=== PATIENT | male | born 2000 | race Caucasian/White ===

== ENCOUNTER 2019-03-15 13:43 | Emergency (ER) | payer OTHER ==
[2019-03-15 14:02] VITALS: BP 133/81
[2019-03-15] MEDS ORDERED: Lidocaine 2% PF * 5 ML VIAL INJ ONE (14:09)
--- NOTE | 2019-03-17 07:58 | UC ---
Laceration HPI - HPI Summary HPI Summary: laceration left index finger x 2 hrs ago cut his left index finger with a sharp knife severity is 4 out of 10 , worse with moving his finger better with pressure, moving his finger well, - History Of Current Complaint Chief Complaint: UCLaceration Stated Complaint: LACERATION ON LT INDEX FINGER Time Seen by Provider: 03/15/19 14:06 Hx Obtained From: Patient Laceration Location: Finger - left index Mechanism Of Injury: Sharp Trauma Onset/Duration: Sudden Onset, Lasting Hours - 2 Severity: Moderate Pain Intensity: 4 Pain Scale Used: 0-10 Numeric Aggravating Factors: Movement - Allergies/Home Medications Allergies/Adverse Reactions: Allergies Allergy/AdvReac Type Severity Reaction Status Date / Time No Known Allergies Allergy Verified 03/15/19 13:58 Home Medications: Home Medications NK [No Home Medications Reported] 03/15/19 [History Confirmed 03/15/19] PMH/Surg Hx/FS Hx/Imm Hx Previously Healthy: Yes - Surgical History Surgical History: Yes Surgery Procedure, Year, and Place: appy. left thumb ligament repair - Family History Known Family History: Negative: Diabetes - Social History Alcohol Use: Occasionally Substance Use Type: None Smoking Status (MU): Never Smoked Tobacco Review of Systems All Other Systems Reviewed And Are Negative: Yes Constitutional: Positive: Negative Eyes: Positive: Negative ENT: Positive: Negative Is Patient Immunocompromised?: No Physical Exam Triage Information Reviewed: Yes Appearance: Well-Appearing, No Pain Distress, Well-Nourished Vital Signs: Initial Vital Signs Temp 99 F 03/15/19 13:58 Pulse 76 03/15/19 13:58 Resp 13 03/15/19 13:58 BP 133/81 03/15/19 13:58 Pulse Ox 97 03/15/19 13:58 Vital Signs Reviewed: Yes Eye Exam: Normal Eyes: Positive: Conjunctiva Clear ENT: Positive: Normal ENT inspection Neck: Positive: Supple Respiratory: Positive: Chest non-tender, Lungs clear, Normal breath sounds Cardiovascular: Positive: RRR, No Murmur, Pulses Normal Skin: Positive: Other - 2 cm laceration left index finger, laceration is 2 mm deep , bleeding, good ROM of the left index figer on flexion and extension , normal stregth Laceration Repair - Laceration Repair 2 Description: Linear Laceration Size After Repair: Length (cm) - 2, Width (mm) - 1, Depth (mm) - 2 Modified For Repair: No Type Injection: Local Anesthesia Used: 2.0% Lido - 4 cc Cleansing Completed Via Routine Prep: Yes Irrigation With Pressure Irrigation Device: Yes Closure Material: Sutures Closure Method: Single Layer Suture Of: Skin Suture Type: Nylon - 5.0 Laceration Course/Dx - Diagnosis Provider Diagnosis: Laceration of left index finger Discharge ED - Sign-Out/Discharge Documenting (check all that apply): Patient Departure All imaging exams completed and their final reports reviewed: No Studies - Discharge Plan Condition: Stable Disposition: HOME Patient Education Materials: Finger Laceration (ED) Referrals: No Primary Care Phys,NOPCP [Primary Care Provider] - Additional Instructions: follow up in 10 days for suture removal - Billing Disposition and Condition Condition: STABLE Disposition: Home
== END 2019-03-15 14:50 | disposition home or self-care (01) ==
LOC: UCCORT 13:43
DX: S61.211A Laceration without foreign body of left index finger without damage to nail, initial encounter (principal); W26.0XXA Contact with knife, initial encounter; Y93.9 Activity, unspecified
CPT/HCPCS: 12001; 12002; 99202; G0463

== ENCOUNTER 2019-03-25 11:36 | Emergency (ER) | payer OTHER ==
[2019-03-25 12:23] VITALS: BP 133/86
--- NOTE | 2019-03-25 12:35 | UC ---
HPI Wound/Suture Re-check - HPI Summary HPI Summary: Pt presents with request to have sutures removed form left index finger that were placed here on 03/15/19. - History Of Current Complaint Chief Complaint: UCWounds Stated Complaint: STUTURE REMOVAL Time Seen by Provider: 03/25/19 12:25 Hx Obtained From: Patient Onset/Duration: Sudden Onset, Resolved Severity: Moderate Pain Intensity: 0 - Allergies/Home Medications Allergies/Adverse Reactions: Allergies Allergy/AdvReac Type Severity Reaction Status Date / Time No Known Allergies Allergy Verified 03/25/19 12:23 PMH/Surg Hx/FS Hx/Imm Hx Previously Healthy: Yes - Surgical History Surgical History: Yes Surgery Procedure, Year, and Place: appy. left thumb ligament repair - Family History Known Family History: Negative: Diabetes - Social History Occupation: Student - [employer] [place] Lives: Dormitory/Roommates Alcohol Use: Occasionally Substance Use Type: None Smoking Status (MU): Never Smoked Tobacco Have You Smoked in the Last Year: No - Immunization History Vaccination Up to Date: Yes Review of Systems All Other Systems Reviewed And Are Negative: Yes Constitutional: Positive: Negative Skin: Positive: Other - suture removal Eyes: Positive: Negative ENT: Positive: Negative Respiratory: Positive: Negative Cardiovascular: Positive: Negative Gastrointestinal: Positive: Negative Genitourinary: Positive: Negative Motor: Positive: Negative Neurovascular: Positive: Negative Musculoskeletal: Positive: Negative Neurological: Positive: Negative Psychological: Positive: Negative Is Patient Immunocompromised?: No Physical Exam Triage Information Reviewed: Yes Appearance: Well-Appearing Vital Signs: Initial Vital Signs Temp 98.4 F 03/25/19 12:19 Pulse 69 03/25/19 12:19 Resp 18 03/25/19 12:19 BP 133/86 03/25/19 12:19 Pulse Ox 99 03/25/19 12:19 Vital Signs Reviewed: Yes Eye Exam: Normal ENT: Positive: Hearing grossly normal Dental Exam: Normal Neck exam: Normal Respiratory: Positive: No respiratory distress Musculoskeletal Exam: Normal Musculoskeletal: Positive: Strength Intact Neurological Exam: Normal Psychological Exam: Normal Skin Exam: Other - sutures intact, no redness, no drainage, no swelling. Course/Dx - Course Course Of Treatment: 5 sutures removed without complication or dehiscent of wound - Differential Dx - Laceration/Wound Differential Diagnoses: Healing Wound, Suture Removal - Diagnosis Provider Diagnosis: Healing wound, Visit for suture removal Discharge ED - Sign-Out/Discharge Documenting (check all that apply): Patient Departure All imaging exams completed and their final reports reviewed: No Studies - Discharge Plan Condition: Stable Disposition: HOME Patient Education Materials: Stitches Removal (ED) Referrals: [facility] [Outside] No Primary Care Phys,NOPCP [Primary Care Provider] - Additional Instructions: Please keep your wound clean and dry for another 5-7 days. Clean around the wound and keep it clean. Please keep the steri strips intact for the next week for healing purposes. If they fall off please place new ones on. - Billing Disposition and Condition Condition: STABLE Disposition: Home - Attestation Statements Provider Attestation: I was available for consult. This patient was seen by the DILIP. The patient was not presented to, seen by, or examined by me. Delta Goss MD
== END 2019-03-25 12:44 | disposition home or self-care (01) ==
LOC: UCCORT 11:36
DX: Z48.02 Encounter for removal of sutures (principal)